=== PATIENT | female | born 1945 | race Caucasian/White ===

== ENCOUNTER 2016-06-01 05:16 | Inpatient (IN) | payer OTHER ==
[2016-06-01] VITALS (8 sets, daily range): BP systolic 101–134; BP diastolic 64–84
[~2016-06-01] VITALS: Ht 160 cm; Wt 83.0 kg
--- NOTE | ~2016-06-01 | O ---
[facility] [place] [address] OPERATIVE REPORT Name: ADA OGDEN Room #: 542-P ADM IN M.R.#: [id number] Admission: 06/01/16 Attend Phys: Mayra Coello MD, Discharge: Date of : 47 Report #: [id number] THIS REPORT FOR: //name// CC: Troy Coello DATE OF SERVICE: 06/01/2016 PREOPERATIVE DIAGNOSES: 1. Incarcerated recurrent incisional ventral hernia. 2. Severe abdominal pain. 3. Suspected intraabdominal adhesions. 4. Intussusception seen on CT scan. POSTOPERATIVE DIAGNOSES: 1. Incarcerated recurrent incisional ventral hernia. 2. Severe abdominal pain. 3. Dense and significant intra-abdominal adhesions. 4. No evidence of intussusception or any other bowel abnormality. 5. Ischemic abdominal wall fascia with indwelling synthetic foreign body material. PROCEDURES PERFORMED: 1. Exploratory laparotomy. 2. Lysis of adhesions. 3. Partial omentectomy. 4. Excisional debridement of ischemic abdominal wall fascia with removal of synthetic foreign body material. 5. Complex abdominal wall reconstruction with open repair of an incarcerated recurrent incisional ventral hernia in the Diamond-Stoppa technique utilizing a BioMesh retrorectus underlay measuring 20 x 10 cm in dimension. 6. Bilateral component separation of the transversus abdominis rectus (TAR) release of the anterior abdominal wall to assist in fascial closure. 7. Adjacent tissue transfer closure of the anterior abdominal wall to achieve complete wound closure with the wound ultimately measuring 33 x 24 cm in dimension (792 square cm). 8. Placement of an external tissue president & ceo device (DermaClose). SURGEON: Mayra Coello M.D. CARTRIDGE MAKER: Javad Rivera M.D. ANESTHESIA: General endotracheal anesthesia. ESTIMATED BLOOD LOSS: 50 mL. [facility] [address] [place] [address] OPERATIVE REPORT Name: ADA OGDEN Room #: 542-P [facility] IN [facility].#: [id number] Admission: 06/01/16 Attend Phys: Mayra Coello MD, Discharge: Date of : 46 Report #: [id number] COMPLICATIONS: None appreciated. SPECIMENS: 1. Excised ischemic abdominal wall with synthetic foreign body material to pathology. 2. Partial omentectomy specimen to pathology. INDICATIONS: The patient is a 71-year-old female who I have seen several times over the past year with complaints of chronic debilitating abdominal pain. Ultimately, we proceeded to the operating room for laparoscopic cholecystectomy with cholangiogram on 05/15/2015. That was performed for right upper quadrant pain, which the patient states has completely dissipated; however, over the past 6 months she has been complaining of significant constipation with lower abdominal cramping and stabbing pain. The patient had been battling severe constipation and was under the care of gastroenterology and underwent a thorough workup including colonoscopy, which was normal, a Sitz marker study, which showed normal motility, repeat CT scan of the abdomen and pelvis in conjunction with CO2 angiography as she is allergic to IV contrast dye, which showed no evidence of mesenteric ischemia. The patient then saw colorectal surgery who performed defecography whereby they recommend pelvic floor rehabilitation for bowel motility issues, but since that time, she has been having normal bowel movements without issue. Unfortunately, her abdominal pain has persistent and she underwent repeat CT imaging, which showed a small short segment intussusception, which was followed by a small bowel series showing no evidence of abnormalities whatsoever. The patient underwent carotid ultrasound as well as an echocardiogram, both of which were within normal limits. As the patient has palpable evidence of an incarcerated recurrent incisional ventral hernia coupled with her chronic debilitating abdominal pain, indication was for exploration today after a very lengthy discussion of the risks, benefits and alternatives to proceeding with operative intervention. DESCRIPTION OF PROCEDURE: After explaining the risks, benefits and alternatives of the procedure with the patient in great detail in the preoperative holding area and obtaining written consent, the patient was brought to the operating room and placed supine on the operating room table. After conducting a thorough timeout procedure verifying correct patient and procedure, she was given general endotracheal anesthesia. Once adequate anesthesia was obtained, her SCDs were hooked up to the pneumatic compression device. She was given a preoperative dose of antibiotics in line with the SCIP protocol. The patient had a Cadena catheter placed and her abdomen was prepped and draped in standard surgical sterile fashion. #10 bladed scalpel was used to create a longitudinal midline wound from the subxiphoid location to the suprapubic location following her prior incision site. Electrocautery was used to carry this down through skin and subcutaneous tissues to ensure hemostasis until I arrived upon the level of fascia. A finger was placed through the obvious incisional ventral hernia that had incarcerated omentum contained [facility] [address] [place] [address] OPERATIVE REPORT Name: ADA OGDEN Room #: 542-P ADM IN M.R.#: [id number] Admission: 06/01/16 Attend Phys: Mayra Coello MD, Discharge: Date of : 47 Report #: [id number] within it and I was able to open the entire fascial incision in a controlled fashion utilizing a finger in the abdomen to prevent injury to the underlying structures. The patient did have numerous loops of small bowel, colon and omentum plastered to the posterior aspect of the anterior abdominal wall and I proceeded to open the longitudinal midline wound with delicate dissection to ensure no damage to the underlying structures. This necessitated a combination of electrocautery and Metzenbaum scissor dissection to prevent injury from thermal spread. Any time, we were near loop of bowel, cold dissection was undertaken with Metzenbaum scissors to prevent injury. Once the entire fascial incision was opened down the midline, we proceeded to evaluate the abdominal wall. The patient ended up having several smaller and recurrent incisional ventral hernias down her longitudinal midline wound all containing omentum. The omentum was plastered low in the pelvis overlying numerous loops of small bowel tethered to the right lower quadrant. Careful dissection was performed to elevate this entire omentum and elevated into the bed of the wound. LigaSure Impact device was used to perform a partial omentectomy of all nonviable omentum and this was passed off the field with complete hemostasis being obtained. The patient did have a large amount of synthetic foreign body material suspected to be suture material from prior repairs down her midline wound, all synthetic material was resected with electrocautery, which included a formal debridement of all ischemic nonviable abdominal wall fascia back to healthy vascularized fascia throughout. All excised tissue was removed and passed off the field to pathology. Yves clamps were now placed along the fascial edges on both sides and attempts at medial mobilization showed that it could be brought together at the midline, but was under significant tension, which is a risk factor for wound dehiscence and recurrence of the hernias. At this juncture, I elected to perform a complex abdominal wall closure with bilateral component separation to hopefully prevent recurrent herniation and as such, I created circumferential skin flaps along the level of the fascia externally during my excisional debridement of the fascia that was carried 4 cm in all directions outside of the fascial edges. This was performed ensuring that we preserved all perforating vessels encountered. Now that I performed debridement of all nonviable fascia and created skin flaps circumferentially, I elected to proceed with a TAR bilateral component separation. I utilized the electrocautery to incise the posterior rectus sheath 0.5 cm medial to the semilunaris to expose the medial edge of the transversus abdominis muscle bilaterally. The muscle was divided allowing entrance into the space then I dissected as far laterally on both sides as possible. The rectus fascia was then advanced medially and this was extended approximately 20 cm in craniocaudal dimension bilaterally and was taken as far laterally as possible. This allowed a significant medial mobilization throughout the entirety of the wound and we were able to bring the fascia together at the midline at this juncture. I now proceeded to repair the recurrent incarcerated incisional ventral hernias in the [place]-Stoppa fashion after performing the bilateral TAR release. I now proceeded to close the posterior rectus fascia using single stranded #1 PDS sutures in standard running fashion from inferior to superior [address] [address] OPERATIVE REPORT Name: ADA OGDEN Room #: 542-P [facility] IN M.R.#: [id number] Admission: 06/01/16 Attend Phys: Mayra Coello MD, Discharge: Date of : 46 Report #: [id number] aspects. This brought the fascial edges together posteriorly quite easily and was tied down in the superior most aspect of the TAR release. I now selected a piece of Miromesh biologic mesh that measured 20 x 10 cm in dimension. This gave us minimum overlap of 5 cm outside of the hernia defects in question laterally and carried the mesh into the dissected plans and the transversus space. The mesh was placed in an immediate retrorectus location in a [place]-Stoppa technique and numerous sutures of #1 PDS were placed through the abdominal wall through the biologic mesh, backup through the abdominal wall where it was then tied. The mesh had been contoured to the defect to remove all rippling of the mesh when the fascial edges were tied down the midline, which was to be done at the completion of the procedure. Each of these transfascial sutures were tied down sequentially, ensuring the biologic mesh was taut throughout. This provided excellent orientation. The midline fascia was now reapproximated with a Yves clamps to ensure no rippling to the biologic mesh and again it was seen to be taut throughout. I now proceeded to place a 19-Khmer round Poli-Becker drain in the space immediately anterior to biologic mesh and posterior to the anterior rectus fascia, which was then brought out through the right lower quadrant abdominal wall, which was then anchored to the skin using 2-0 nylon in standard fashion. I now proceeded to close the anterior rectus fascial defect using a looped #1 PDS suture in standard running fashion from inferior to superior aspects where it was tied down in the subxiphoid location. As I had created skin flaps circumferentially using electrocautery by clearing fascia circumferentially and I carried the dissection superiorly, inferiorly and laterally as much as possible, this left an abdominal wall defect ultimately measuring 33 x 24 cm in dimension. All perforating vessels were preserved throughout the dissection. I now proceeded to close the skin and subcutaneous tissues, which required complex adjacent tissue transfer techniques for complete soft tissue coverage over the abdominal wall. This was performed by making relaxing incisions internally along the flaps and rotating the subcutaneous tissues medially to cover the anterior fascial repair. I then reapproximated the edges of dermis and placed numerous sutures of 3-0 Vicryl in an inverted interrupted fashion to close the superficial tissues over the underlying fascia. Skin was then stapled using the Insorb absorbable subcuticular stapling device. The entire midline wound was under a slight amount of tension after closure and as such I elected to place an external tissue president & ceo device (DermaClose) to help obtain complete wound closure down the midline that was not under any undue tension, which is a significant risk factor for wound dehiscence, especially in this patient with obesity and a BMI of greater than 30. The DermaClose device was placed utilizing its skin anchors to line the wound longitudinally at 3 cm intervals circumferentially around the skin wounds. I ensured that we had at least 4 cm of healthy tissue between the edge of the anchors and the longitudinal wound edge itself. This took 8 anchors on each side and once all anchors were placed they were stapled to the skin using a skin stapler. Telfa gauze was placed overlying the skin wound and I then proceeded to utilize four separate automatic tensioner devices, which were then laced appropriately through the [address] [address] OPERATIVE REPORT Name: OGDEN,ADAKULWANT WATERS Room #: 542-P [facility] IN ..#: [id number] Admission: 06/01/16 Attend Phys: Mayra Coello MD, Discharge: Date of : 47 Report #: [id number] anchors and ratcheted down. Once these were activated they were looked in the place and this applied uniform tension across the entirety of the longitudinal midline wound and kept it closed without undue tension at the level of the subcuticular audelia themselves. This allowed us to offload tension at the audelia and distribute it circumferentially around the wounds 4 cm away on each side. These were then left in place to act as a bolster and DuoDERM was placed on the skin underneath each of the tensioner devices to prevent maceration of the skin. Sterile dressings were applied using ABDs, Medipore tape and an abdominal binder. At the end of the lengthy procedure, all instrument, needle and sponge counts were correct. The patient tolerated the procedure without incident. She was awakened in the operating room and transitioned to the recovery room in stable condition with no apparent complications. She made excellent urine throughout the case and had no appreciable increase peak airway pressures throughout. <ELECTRONICALLY SIGNED> By: Mayra Coello MD, FACS 06/02/16 0741 181 37 Mayra Coello MD, FACS /nt
--- NOTE | ~2016-06-01 | EKG ---
[address] [address] ELECTROCARDIOGRAM REPORT Name: ADA OGDEN EVELIN Room #: 405-P ADM IN M.R.#: [id number] Admission: 06/01/16 Attend Phys: Mayra Coello MD, Discharge: Date of : 47 Report #: [id number] THIS REPORT FOR: //name// [facility] Test Date: 2016-06-10 Test Time: 18:13:33 Pat Name: ADA OGDEN Department: Room: 405 P Gender: F Plastic Welder: Debi GOETZ : 1945 Requested By: Elaine Baez Order Number: [id number] MD: Christiano Andrade Measurements Intervals [place] Rate: 93 P: 5 WV: 134 QRS: 4 QRSD: 89 T: 13 QT: 344 QTc: 428 Interpretive Statements Sinus rhythm Probable left atrial enlargement Baseline wander in lead(s) V1 No previous ECG available for comparison Electronically Signed On 06-11-2016 8:26:45 CDT by Christiano Andrade [email or web address] <ELECTRONICALLY SIGNED> By: Christiano Andrade MD, [facility] 06/11/16 0826 12 12 Christiano Andrade MD, [facility] /EPI
--- NOTE | ~2016-06-01 | S ---
[facility] [place] [place] [address] SURGICAL PATH RPT PROCEDURE Name: JENAE OGDEN Room #: 542-P ADM IN M.R.#: [id number] Admission: 06/01/16 Date of : 47 Discharge: Report #: [id number] Path Case #: [id number] PATHOLOGY REPORT COLLECTION DATE: 06/01/2016 RECEIVED DATE: 06/01/2016 SUBMITTING PHYS: Dr. Mayra Coello OTHER PHYS: Dr. Troy Rust SPECIMEN(S) RECEIVED: A.Omentum with foreign body * * * * * * * * * * * * FINAL DIAGNOSIS: Omentum with foreign body, removal: - Mature fibroadipose tissue associated with extensive congestion and reactive changes. - Synthetic suture and synthetic material measuring an aggregate of 4.1 cm. (Gross Exam Only). (IUV:csd; d/t: 06/02/2016) PATHOLOGIST: Suzanne Banda M.D. REPORT ELECTRONICALLY SIGNED BY: Suzanne Banda M.D. DATE/TIME: 06/02/2016 16:15 * * * * * * * * * * * * GROSS PATHOLOGY: The specimen is received in formalin labeled "Jenae Ogden, omentum with foreign body". Received is a segment of yellow-henderson omentum measuring 15.8 x 10.9 x 3.2 cm in greatest dimensions. Sectioning reveals yellow-henderson, lobulated cut surface with no grossly distinct nodules or lesions. Also received within the specimen container are multiple blue sutures attached to a foreign synthetic material measuring 4.1 x 3.2 x 1.2 cm in aggregate dimensions. Cryolite Recovery Operator sections of the omentum are submitted in cassette A1. A gross photograph is taken of the sutures. (CAA; 06/01/2016) CLINICAL HISTORY: Incisional hernia with obstruction INITIAL CPT CODE(S): A; 21685, 17423 Professional services performed by [facility] at [address] [address] SURGICAL PATH RPT PROCEDURE Name: OGDENEDUARDOJENAEKULWANT WATERS Room #: 542-P ADM IN M.R.#: [id number] Admission: 06/01/16 Date of : 47 Discharge: Report #: [id number] Path Case #: [id number] [address] [facility] , [place] [address] Technical [facility] by [facility] at [address] [place] [address], [facility] [address] [place] [address]. [facility] [address] [place] [address] PHONE: [phone] DIRECTOR: Cali Nguyễn M.D. * * * END OF REPORT * * *
--- NOTE | ~2016-06-01 | 2DMMODE ---
[facility] [address] [place] [address] 2 D/M-MODE ECHOCARDIOGRAM Name: ADA OGDEN Room #: 405-P ADM IN M.R.#: [id number] Admission: 06/01/16 Attend Phys: Mayra Coello, Discharge: Date of : 47 Date of Service: 06/11/16 1703 Report #: [id number] THIS REPORT FOR: //name// APPROVED REPORT EXAM: Comprehensive 2D, Doppler, and color-flow Echocardiogram Patient Location: Bedside/ROOM 405 Blood Pressure: 160/106 mmHg HR: 82 bpm Other Information Study Quality: Fair Technically limited study due to body habitus, surgical bandages. Only one available window.. Indications Limited echo: Rule out pulmonary embolism. dyspnea. (Had complete echo 04/2016) Tricuspid Valve TR Peak Bg.: 2.96 m/s TR Peak Gr.: 35.13 mmHg Left Ventricle The left ventricle is normal size. Regional wall motion is not well visualized but grossly normal. There is normal left ventricular wall thickness. The left ventricular systolic function is normal. LVEF is 50-55%. Right Ventricle The right ventricle is normal size and appears mildly hypokinetic Atria Left atrium appears dilated. The right atrium size is normal. Aortic Valve The aortic valve is normal in structure. No aortic regurgitation is present. Mitral Valve The mitral valve is normal in structure. Mild mitral annular [facility] [address] [place] [address] 2 D/M-MODE ECHOCARDIOGRAM Name: ADA OGDEN Room #: 405-P ADM IN M.R.#: [id number] Admission: 06/01/16 Attend Phys: Mayra Coello, Discharge: Date of : 47 Date of Service: 06/11/161702 Report #: [id number] calcification. There is no mitral valve regurgitation noted. Tricuspid Valve The tricuspid valve is normal in structure. There is mild tricuspid regurgitation. The right atrial pressure is unable to be estimated. There is at least mild pulmonary hypertension with an estimated PAP of 35 plus the right atrial pressure. Great Vessels The inferior vena cava is not well visualized. Pericardium There is no pericardial effusion. <Conclusion> The left ventricular systolic function is normal. Regional wall motion is not well visualized but grossly normal. LVEF is 50-55%. Left atrium appears dilated. The aortic valve is normal in structure without stenosis or insufficiency. Mild mitral annular calcification. No mitral stenosis or insufficiency There is mild tricuspid regurgitation. The right atrial pressure is unable to be estimated. There is at least mild pulmonary hypertension with an estimated PAP of 35 plus the right atrial pressure. There is no pericardial effusion. <ELECTRONICALLY SIGNED> By: Christiano Andrade MD, [facility] 06/11/161702 02 02 Christiano Andrade MD, FACC /INF
--- NOTE | ~2016-06-01 | O ---
[facility] [place] [address] OPERATIVE REPORT Name: ADA OGDEN Room #: 542-P ADM IN M.R.#: [id number] Admission: 06/01/16 Attend Phys: Mayra Coello MD, Discharge: Date of : 47 Report #: [id number] THIS REPORT FOR: //name// CC: Troy Coello DATE OF SERVICE: 06/08/2016 PREOPERATIVE DIAGNOSES: Indwelling external tissue expanders, status post complex abdominal wall reconstruction with bilateral component separation, adjacent tissue transfer and utilization of biomesh repair of an incarcerated recurrent incisional ventral hernia. POSTOPERATIVE DIAGNOSES: Indwelling external tissue expanders, status post complex abdominal wall reconstruction with bilateral component separation, adjacent tissue transfer and utilization of biomesh repair of an incarcerated recurrent incisional ventral hernia. PROCEDURE: Removal of external tissue correctional food service supervisor. SURGEON: Mayra Coello MD MANAGER MARKET DEVELOPMENT: Brittni Stacy MS3. ANESTHESIA: None. COMPLICATIONS: None. SPECIMENS: All removed external tissue expanders. INDICATIONS: The patient is a 71-year-old female who is postoperative day #7 after undergoing complex abdominal wall reconstruction procedure for multiple incarcerated recurrent incisional ventral hernias and marked intra-abdominal adhesions. The patient has done well overall with pain control being the only real postoperative issue and as it has been 7 days now, indication was for removal today to evaluate the wound postoperatively. DESCRIPTION OF PROCEDURE: After explaining the risks, benefits and alternatives of the procedure and obtaining consent, the patient remained in her hospital room, supine on her hospital bed. After conducting a thorough timeout procedure, verifying correct patient, and procedure, the patient's abdomen was prepped and draped in standard surgical sterile fashion. Sterile suture scissors were used to cut the sutures of the automatic tensioner devices that were laced through the anchors that lined to the wound longitudinally. This allowed each of the tensioner devices to be unwoven from the anchors and then they were passed off the field. Thee sterile staple removers were then used to [address] [address] OPERATIVE REPORT Name: ALINADA EVELIN Room #: 542-P ADM IN M.R.#: [id number] Admission: 06/01/16 Attend Phys: Mayra Coello MD, Discharge: Date of : 47 Report #: [id number] remove all of the audelia that affixed the anchors to the abdominal wall and then the anchors themselves were gently lifted out of the abdominal wall in standard fashion. This left a longitudinal midline wound that was healthy without erythema, induration, necrosis or drainage. The wound was then dressed with sterile Telfa, Medipore tape and her abdominal binder was replaced. At the end of the procedure, all instrument, needle, and sponge counts were correct. The patient tolerated the procedure without incident where she remained in her hospital bed in stable condition with no apparent complications. <ELECTRONICALLY SIGNED> By: Mayra Coello MD, FACS 06/08/16 1504 0905 1034 Mayra Coello MD, FACS /nt
--- NOTE | ~2016-06-01 | HC ---
[facility] [place] [address] CONSULTATION Name: ADA OGDEN Room #: 405-P ADM IN M.R.#: [id number] Admission: 06/01/16 Attend Phys: Mayra Coello MD, Discharge: Date of : 47 Report #: [id number] THIS REPORT FOR: //name// CC: Troy Rust DO Mayra Coello MD DATE OF SERVICE: 06/05/2016 REFERRING PROVIDER: Mayra Coello MD REASON FOR CONSULTATION: Cough, hypoxemia, abnormal chest x-ray. HISTORY OF PRESENT ILLNESS: Our group was asked to evaluate the patient in consultation while hospitalized at [facility], a pleasant 71-year-old woman with a past pulmonary history significant only for intermittent lower respiratory infections associated with bronchospasm, has a nebulizer, which she uses about once a year during these episodes of lower respiratory infection, was admitted for elective surgery for an incarcerated incisional ventral hernia and an adhesiolysis, underwent a surgical exploration with extensive lysis of adhesions, partial omentectomy and debridement of ischemic abdominal wall fascia, removal of synthetic foreign body material and then complex abdominal wall reconstruction and repair of recurrent incisional ventral hernias. Postoperatively, he had been having some difficulties due to ongoing ileus, had been having some cough with no sputum production, no fevers, chills or sweats. Because of increasing confusion, although improved this afternoon and the patient's lack of steady progress and ongoing cough, additional workup was undertaken. Chest radiograph today revealed an small opacity in the retrocardiac area. We were asked to further evaluate. The patient notes some difficulty performing well on incentive spirometry, her incentive spirometry was brought to her today to use every hour, has been pulling less than 1000 mL on the incentive spirometer and as mentioned has cough that is nonproductive. No shortness of breath, had some difficulty taking a good deep breath due to discomfort in the epigastric area with deep inspiration. A chest radiograph today revealed markedly poor inspiratory effort, particularly of the right lung with a small area of opacity suggestive of infiltrate, atelectasis or small pleural effusion. Currently, she is resting comfortably in bed, does not appear in any distress. ALLERGIES: Include FIBERGLASS CASTING and CONTRAST DYE, SHELLFISH, STADOL, MORPHINE, CODEINE, DARVON, NABUMETONE, REGLAN, NALFON, LEVAQUIN and RIVAROXABAN. PAST MEDICAL HISTORY: Includes: 1. Recurrent lower respiratory infection and bronchitis about once annually [address] [address] CONSULTATION Name: ADA OGDEN Room #: 405-P [facility] IN M.R.#: [id number] Admission: 06/01/16 Attend Phys: Mayra Coello MD, Discharge: Date of : 47 Report #: [id number] requiring bronchodilators and antibiotic therapy. 2. History of severe esophageal reflux, status post Luis Alberto fundoplication. 3. History of left total knee arthroplasty. 4. Hysterectomy. 5. Bilateral salpingectomy and oophorectomy. SOCIAL HISTORY: The patient is a nonsmoker, never smoker. No significant alcohol consumption. Lives with significant other who she has known for about the last year and a half. FAMILY HISTORY: Significant for mother with Alzheimer dementia and cerebrovascular disease. REVIEW OF SYSTEMS: CONSTITUTIONAL: No fevers, chills or sweats. ENT: No upper respiratory congestion. She has some throat pain at present postoperatively. CARDIOVASCULAR: No cardiac disease, chest pain or palpitations. GASTROINTESTINAL: As described in HPI. GENITOURINARY: No dysuria or any frequency or hematuria. INTEGUMENT: Denies any new rash. MUSCULOSKELETAL: History of osteoarthritis of bilateral total knee. arthroplasties. No other significant complaints at this time. PHYSICAL EXAMINATION: VITAL SIGNS: Afebrile, pulse 80s, respiratory rate 18, blood pressure 156/95, oxygen saturation 96% on 2 liters. GENERAL: This is an obese, elderly woman, does not appear in any distress. HEENT: Mallampati 3 airway, no thrush. No erythema. NECK: Supple, no lymphadenopathy. LUNGS: Diminished in the left base, no significant wheezes or crackles. CARDIOVASCULAR: Heart regular. No murmurs or gallops. ABDOMEN: abdominal binder in place. PAZ tube is noted with minimal serosanguineous drainage in the bulb, markedly diminished bowel sounds. EXTREMITIES: Warm, 2+ pulses. No significant edema. Right upper extremity peripheral IV noted. LABORATORY DATA: White blood cell count 10,000, hemoglobin 12, hematocrit 34, and platelet count 173. Sodium 140, potassium 3.3, chloride 104, bicarbonate 27, BUN 6, creatinine 0.5 and glucose 126. Chest x-ray as described. radiographs to review. IMPRESSION: 1. Acute hypoxemic respiratory failure, likely multifactorial to include atelectasis, diminished vital capacity due to recent abdominal surgery. 2. Left retrocardiac infiltrate and/or atelectasis, likely represents a [facility] [address] [place] [address] CONSULTATION Name: ADA OGDEN Room #: 405-P ADM IN M.R.#: [id number] Admission: 06/01/16 Attend Phys: Mayra Coello MD, Discharge: Date of : 47 Report #: [id number] component of atelectasis over effusion and her pneumonia with no fever or leukocytosis, would favor treating her atelectasis for now. Consider further evaluation for possible pleural effusion with decubitus x-ray if the patient can tolerate. 3. Recent significant abdominal repair of hernias as described above. SUGGESTIONS: 1. Incentive spirometry q. 1 hour. 2. We will add albuterol aerosol treatments with EzPAP. 3. Follow up radiograph in a.m. 4. Afebrile or leukocytosis or purulent cough. Would add antimicrobial therapy to cover for healthcare-associated organisms. 5. Mobilize as able. 6. Additional recommendations to follow. Thank you for requesting our suggestions. <ELECTRONICALLY SIGNED> By: Hawk Teran MD 06/09/16 [id number] Hawk Teran MD /nt
[~2016-06-01 05:16] MED LIST: ALLERGY 4-HOUR4 MG PO; ALPRAZOLAM 0.50.5 M1 PO; AMITIZA 24 MCG24 MC1 PO; AMITRIPTYLINE H10 M3 PO; APAP500 PO; ASPIR 8181 MG PO; BUSPIRONE HCL5 MG PO; CLARITIN10 MG PO; COLACE100 MG PO; FISH OIL 1,001000 M2 PO; IBUPROFEN 800800 M1 PO; KLOR-CON 10 ER10 MEQ; LINZESS290 MCG PO; MAGNESIUM GLUC500 M1 PO; MIRALAX17 GM PO; MULTIVITAMINS1 EAC7 PO; NORCO 5-325 TA1 EACH PO; PROTONIX40 M1 PO; RANITIDINE 150150 M1 PO; RESTASIS1 EACH OPHTHALMIC; TRAZODONE 150150 M1 PO; TRAZODONE HCL100 MG PO; VITAMIN B COMP1 EACH PO; VITAMIN B-12500 MCG PO; VITAMIN D2000 UNIT PO; VITAMINC500 PO; XALATAN2.5 ML OPHTHALMIC
[2016-06-02 03:09] VITALS: BP 128/80
[2016-06-02 05:05] LABS: HEMATOCRIT 37.3 % (37.0-47.0); HEMOGLOBIN 12.3 gm/dL (12.0-15.0); MCH 29.6 pg (26.0-34.0); MCV 89.5 fL (80.0-100.0); RBC 4.17 mil/uL (4.20-5.00); RDW 14.1 % (10.5-14.5); WBC 14.3 thou/uL (4.0-11.0)
[2016-06-02 05:14] LABS: CALCIUM 7.7 mg/dL (8.5-10.1); CREATININE 0.7 mg/dL (0.6-1.3); MAGNESIUM 2.2 mg/dL (1.8-2.4); POTASSIUM 4.1 mmol/L (3.5-5.1)
[2016-06-02 08:23] VITALS: BP 112/62
[2016-06-02 15:30] VITALS: BP 134/71
[2016-06-02 15:51] VITALS: BP 134/71
[2016-06-02 20:00] VITALS: BP 121/67
[2016-06-03 03:38] LABS: HEMATOCRIT 33.4 % (37.0-47.0); HEMOGLOBIN 11.3 gm/dL (12.0-15.0); MCH 30.1 pg (26.0-34.0); MCHC 33.7 g/dL (28.0-37.0); MCV 89.2 fL (80.0-100.0); PLATELET COUNT 134 thou/uL (150-400); RBC 3.74 mil/uL (4.20-5.00); RDW 14.4 % (10.5-14.5); WBC 14.5 thou/uL (4.0-11.0)
[2016-06-03 03:43] LABS: MANUAL DIFF YES
[2016-06-03 03:45] LABS: CALCIUM 7.5 mg/dL (8.5-10.1); CREATININE 0.6 mg/dL (0.6-1.3); MAGNESIUM 2.2 mg/dL (1.8-2.4); POTASSIUM 3.8 mmol/L (3.5-5.1)
[2016-06-03 04:00] VITALS: BP 116/61
[2016-06-03 06:21] LABS: ABSOLUTE NEUTROPHILS 12.3 thou/uL (1.4-8.2); MYELOCYTES 1 %; TOTAL CELL COUNT 100
[2016-06-03 09:49] VITALS: BP 141/80
[2016-06-03 17:47] VITALS: BP 141/91
[2016-06-03 20:00] VITALS: BP 138/74
[2016-06-04] VITALS: BP 150/90
[2016-06-04 02:00] VITALS: BP 144/82
[2016-06-04 05:25] LABS: HEMATOCRIT 34.1 % (37.0-47.0); HEMOGLOBIN 11.5 gm/dL (12.0-15.0); MCHC 33.6 g/dL (28.0-37.0); PLATELET COUNT 151 thou/uL (150-400); RBC 3.83 mil/uL (4.20-5.00); RDW 13.9 % (10.5-14.5); WBC 13.7 thou/uL (4.0-11.0)
[2016-06-04 05:40] LABS: MANUAL DIFF YES
[2016-06-04 05:41] LABS: CALCIUM 8.1 mg/dL (8.5-10.1); CREATININE 0.5 mg/dL (0.6-1.3); MAGNESIUM 2.1 mg/dL (1.8-2.4); POTASSIUM 3.3 mmol/L (3.5-5.1)
[2016-06-04 08:00] VITALS: BP 149/89
[2016-06-04 08:07] LABS: ABSOLUTE NEUTROPHILS 11.4 thou/uL (1.4-8.2); ANISOCYTOSIS 1+; TOTAL CELL COUNT 100
[2016-06-04 15:40] VITALS: BP 174/92
[2016-06-04 20:15] VITALS: BP 171/95
[2016-06-05 03:15] VITALS: BP 142/97
[2016-06-05 04:22] LABS: HEMATOCRIT 33.7 % (37.0-47.0); HEMOGLOBIN 11.5 gm/dL (12.0-15.0); MCH 30.4 pg (26.0-34.0); MCHC 34.2 g/dL (28.0-37.0); MCV 88.8 fL (80.0-100.0); RBC 3.79 mil/uL (4.20-5.00); RDW 13.7 % (10.5-14.5); WBC 10.1 thou/uL (4.0-11.0)
[2016-06-05 04:32] LABS: CALCIUM 8.3 mg/dL (8.5-10.1); CREATININE 0.5 mg/dL (0.6-1.3); POTASSIUM 3.3 mmol/L (3.5-5.1)
[2016-06-05 08:41] VITALS: BP 163/89
[2016-06-05 16:48] VITALS: BP 156/95
[2016-06-05 22:00] VITALS: BP 150/84
[2016-06-06 05:51] VITALS: BP 126/70
[2016-06-06 07:17] VITALS: BP 159/92
[2016-06-06 16:00] VITALS: BP 147/82
[2016-06-06 20:30] VITALS: BP 155/94
[2016-06-07 03:53] LABS: HEMATOCRIT 34.9 % (37.0-47.0); HEMOGLOBIN 11.8 gm/dL (12.0-15.0); MCH 29.9 pg (26.0-34.0); MCHC 33.7 g/dL (28.0-37.0); MCV 88.7 fL (80.0-100.0); RBC 3.94 mil/uL (4.20-5.00); RDW 13.7 % (10.5-14.5); WBC 8.9 thou/uL (4.0-11.0)
[2016-06-07 04:07] LABS: CALCIUM 8.3 mg/dL (8.5-10.1); CREATININE 0.6 mg/dL (0.6-1.3); POTASSIUM 3.2 mmol/L (3.5-5.1)
[2016-06-07 05:15] VITALS: BP 160/88
[2016-06-07 07:45] VITALS: BP 134/82
[2016-06-07 16:12] VITALS: BP 138/88
[2016-06-07 19:58] VITALS: BP 135/79
[2016-06-07 20:10] VITALS: BP 135/79
[2016-06-08 03:10] VITALS: BP 153/89
[2016-06-08 16:25] VITALS: BP 171/96
[2016-06-08 19:07] VITALS: BP 165/93
[2016-06-09 05:59] LABS: HEMATOCRIT 35.6 % (37.0-47.0); HEMOGLOBIN 12.1 gm/dL (12.0-15.0); MCH 29.9 pg (26.0-34.0); RBC 4.05 mil/uL (4.20-5.00); RDW 13.9 % (10.5-14.5); WBC 11.8 thou/uL (4.0-11.0)
[2016-06-09 06:21] LABS: CALCIUM 8.6 mg/dL (8.5-10.1); CREATININE 0.6 mg/dL (0.6-1.3)
[2016-06-09 10:23] VITALS: BP 168/109
[2016-06-09 16:53] VITALS: BP 183/105
[2016-06-09 19:40] VITALS: BP 166/116
[2016-06-10 00:35] VITALS: BP 168/111
[2016-06-10 04:00] VITALS: BP 185/125
[2016-06-10 08:00] VITALS: BP 169/110
[2016-06-10 15:21] VITALS: BP 117/117
[2016-06-10 19:40] VITALS: BP 169/113
[2016-06-11 00:38] VITALS: BP 178/118
[2016-06-11 01:06] LABS: HEMATOCRIT 37.4 % (37.0-47.0); HEMOGLOBIN 12.6 gm/dL (12.0-15.0); MCH 29.6 pg (26.0-34.0); MCHC 33.7 g/dL (28.0-37.0); RBC 4.25 mil/uL (4.20-5.00); RDW 13.9 % (10.5-14.5); WBC 13.9 thou/uL (4.0-11.0)
[2016-06-11 01:17] LABS: CALCIUM 8.9 mg/dL (8.5-10.1); CREATININE 0.9 mg/dL (0.6-1.3)
[2016-06-11 04:54] VITALS: BP 149/97
[2016-06-11 06:42] LABS: ABG SAMPLE TYPE ARTERIAL; BE(vivo) 1.1 mmol/L (-2 to +3); HCO3 24.1 mmol/L (22.0-26.0); LACTATE 0.98 mmol/L (0.5-2.0); O2(CT) 16.1 mL/dL (15.0-23.0); O2Hb 87.6 % (92.0-98.0); PCO2 33.3 mmHg (35.0-45.0); PO2 54.4 mmHg (80.0-100.0); STICK SITE R.RADIAL; pH 7.478 (7.360-7.450); sO2 90.7 % (92.0-98.0); tCO2 25.2 mmol/L (24.0-30.0)
[2016-06-11 07:35] VITALS: BP 167/101
[2016-06-11 09:13] LABS: CHOLESTEROL 148 mg/dL (<200); HDL CHOLESTEROL 54 mg/dL (>40); LDL CHOLESTEROL 74 mg/dL (<100); TC:HDL 2.7 Ratio (Not establshd); TRIGLYCERIDE 104 mg/dL (<150); VLDL 21 mg/dL (<40)
[2016-06-11 12:06] VITALS: BP 160/106
[2016-06-11 16:17] VITALS: BP 156/96
[2016-06-11 20:00] VITALS: BP 136/98
[2016-06-12 04:00] VITALS: BP 149/104
[2016-06-12 04:08] LABS: HEMATOCRIT 35.2 % (37.0-47.0); HEMOGLOBIN 12.1 gm/dL (12.0-15.0); MCH 29.9 pg (26.0-34.0); MCHC 34.5 g/dL (28.0-37.0); MCV 86.5 fL (80.0-100.0); RBC 4.07 mil/uL (4.20-5.00); RDW 13.8 % (10.5-14.5); WBC 15.8 thou/uL (4.0-11.0)
[2016-06-12 04:19] LABS: CALCIUM 8.3 mg/dL (8.5-10.1); CREATININE 0.7 mg/dL (0.6-1.3); POTASSIUM 4.1 mmol/L (3.5-5.1)
[2016-06-12 08:26] VITALS: BP 166/104
[2016-06-12 12:00] VITALS: BP 134/84
[2016-06-12 17:07] VITALS: BP 127/75
[2016-06-12 19:51] VITALS: BP 140/84
[2016-06-13 01:14] VITALS: BP 133/81
[2016-06-13 05:40] LABS: ABSOLUTE NEUTROPHILS 10.1 thou/uL (1.4-8.2); BASOPHILS 0.1 % (0.0-2.0); HEMATOCRIT 31.6 % (37.0-47.0); LYMPHOCYTES 11.7 % (24.0-44.0); MCH 30.2 pg (26.0-34.0); MCHC 34.8 g/dL (28.0-37.0); MCV 86.8 fL (80.0-100.0); MONOCYTES 8.9 % (1.0-8.0); PLATELET COUNT 258 thou/uL (150-400); POLYS 78.3 % (36.0-66.0); RBC 3.64 mil/uL (4.20-5.00); WBC 12.9 thou/uL (4.0-11.0)
[2016-06-13 05:44] LABS: MANUAL DIFF NO
[2016-06-13 05:58] LABS: CALCIUM 8.3 mg/dL (8.5-10.1); CREATININE 0.7 mg/dL (0.6-1.3); POTASSIUM 3.4 mmol/L (3.5-5.1)
[2016-06-13 08:00] VITALS: BP 142/91
[2016-06-13 13:00] VITALS: BP 146/88
[2016-06-13 16:00] VITALS: BP 136/81
[2016-06-13 20:05] VITALS: BP 143/72
[2016-06-14] VITALS: BP 143/74
[2016-06-14 04:37] VITALS: BP 137/73
[2016-06-14 04:49] LABS: ABSOLUTE NEUTROPHILS 7.9 thou/uL (1.4-8.2); BASOPHILS 0.2 % (0.0-2.0); EOSINOPHILS 1.3 % (0.0-3.0); HEMATOCRIT 31.2 % (37.0-47.0); HEMOGLOBIN 10.7 gm/dL (12.0-15.0); LYMPHOCYTES 10.5 % (24.0-44.0); MCH 29.8 pg (26.0-34.0); MCHC 34.3 g/dL (28.0-37.0); MCV 86.9 fL (80.0-100.0); MONOCYTES 9.4 % (1.0-8.0); PLATELET COUNT 255 thou/uL (150-400); POLYS 78.6 % (36.0-66.0); RBC 3.59 mil/uL (4.20-5.00); RDW 13.6 % (10.5-14.5); WBC 10.1 thou/uL (4.0-11.0)
[2016-06-14 04:53] LABS: MANUAL DIFF NO
[2016-06-14 05:05] LABS: ALBUMIN 2.3 g/dL (3.4-5.0); CALCIUM 7.7 mg/dL (8.5-10.1); CREATININE 0.6 mg/dL (0.6-1.3); TOTAL BILIRUBIN 0.4 mg/dL (<0.1-1.0); TOTAL PROTEIN 5.2 g/dL (6.4-8.2)
[2016-06-14 05:10] LABS: MAGNESIUM 2.2 mg/dL (1.8-2.4); PHOSPHORUS 3.1 mg/dL (2.5-4.9); POTASSIUM 2.9 mmol/L (3.5-5.1)
[2016-06-14 08:00] VITALS: BP 139/85
[2016-06-14 16:00] VITALS: BP 152/81
[2016-06-14 20:20] VITALS: BP 151/80
[2016-06-15 04:19] VITALS: BP 141/84
[2016-06-15 06:29] LABS: HEMATOCRIT 31.7 % (37.0-47.0); HEMOGLOBIN 10.9 gm/dL (12.0-15.0); MCH 29.9 pg (26.0-34.0); MCHC 34.5 g/dL (28.0-37.0); MCV 86.6 fL (80.0-100.0); RBC 3.66 mil/uL (4.20-5.00); RDW 13.6 % (10.5-14.5); WBC 9.9 thou/uL (4.0-11.0)
[2016-06-15 06:51] LABS: ALBUMIN 2.4 g/dL (3.4-5.0); CALCIUM 7.9 mg/dL (8.5-10.1); CREATININE 0.6 mg/dL (0.6-1.3); POTASSIUM 3.4 mmol/L (3.5-5.1); TOTAL BILIRUBIN 0.6 mg/dL (<0.1-1.0); TOTAL PROTEIN 5.4 g/dL (6.4-8.2)
[2016-06-15 08:00] VITALS: BP 142/76
[2016-06-15 16:00] VITALS: BP 139/90
[2016-06-15 20:00] VITALS: BP 130/84
[2016-06-16 03:55] VITALS: BP 124/73
[2016-06-16 04:56] LABS: HEMATOCRIT 32.6 % (37.0-47.0); HEMOGLOBIN 11.1 gm/dL (12.0-15.0); MCH 29.7 pg (26.0-34.0); MCV 87.3 fL (80.0-100.0); PLATELET COUNT 243 thou/uL (150-400); RBC 3.74 mil/uL (4.20-5.00); RDW 13.8 % (10.5-14.5)
[2016-06-16 04:58] LABS: MANUAL DIFF YES
[2016-06-16 05:09] LABS: ALBUMIN 2.5 g/dL (3.4-5.0); CALCIUM 8.2 mg/dL (8.5-10.1); CREATININE 0.6 mg/dL (0.6-1.3); POTASSIUM 3.3 mmol/L (3.5-5.1); TOTAL BILIRUBIN 0.4 mg/dL (<0.1-1.0); TOTAL PROTEIN 5.7 g/dL (6.4-8.2)
[2016-06-16 05:17] LABS: ABSOLUTE NEUTROPHILS 5.8 thou/uL (1.4-8.2); ATYPICAL LYMPHS 3 %; TOTAL CELL COUNT 100
[2016-06-16 08:17] VITALS: BP 133/78
[2016-06-16 09:12] LABS: MAGNESIUM 2.2 mg/dL (1.8-2.4); PHOSPHORUS 3.3 mg/dL (2.5-4.9)
[2016-06-16 16:00] VITALS: BP 133/73
[2016-06-16 19:20] VITALS: BP 136/77
[2016-06-17 04:15] VITALS: BP 127/81
[2016-06-17 05:18] LABS: HEMATOCRIT 31.8 % (37.0-47.0); HEMOGLOBIN 10.9 gm/dL (12.0-15.0); MCH 29.9 pg (26.0-34.0); MCHC 34.2 g/dL (28.0-37.0); MCV 87.3 fL (80.0-100.0); PLATELET COUNT 237 thou/uL (150-400); RBC 3.64 mil/uL (4.20-5.00); RDW 13.6 % (10.5-14.5); WBC 5.2 thou/uL (4.0-11.0)
[2016-06-17 05:22] LABS: MANUAL DIFF YES
[2016-06-17 05:40] LABS: ALBUMIN 2.3 g/dL (3.4-5.0); CALCIUM 8.2 mg/dL (8.5-10.1); CREATININE 0.5 mg/dL (0.6-1.3); MAGNESIUM 2.3 mg/dL (1.8-2.4); PHOSPHORUS 2.7 mg/dL (2.5-4.9); POTASSIUM 3.5 mmol/L (3.5-5.1); TOTAL BILIRUBIN 0.3 mg/dL (<0.1-1.0); TOTAL PROTEIN 5.7 g/dL (6.4-8.2)
[2016-06-17 08:00] VITALS: BP 121/76
[2016-06-17 08:04] LABS: ABSOLUTE NEUTROPHILS 3.3 thou/uL (1.4-8.2); ANISOCYTOSIS SLIGHT; ATYPICAL LYMPHS 2 %; POIKILOCYTOSIS SLIGHT; TOTAL CELL COUNT 100
[2016-06-17 16:01] VITALS: BP 132/88
[2016-06-17 21:40] VITALS: BP 141/90
[2016-06-18 04:01] VITALS: BP 122/81
[2016-06-18 05:46] LABS: HEMATOCRIT 33.4 % (37.0-47.0); HEMOGLOBIN 11.3 gm/dL (12.0-15.0); MCH 29.4 pg (26.0-34.0); MCHC 33.8 g/dL (28.0-37.0); MCV 86.9 fL (80.0-100.0); RBC 3.84 mil/uL (4.20-5.00); RDW 13.4 % (10.5-14.5); WBC 6.7 thou/uL (4.0-11.0)
[2016-06-18 06:01] LABS: ALBUMIN 2.5 g/dL (3.4-5.0); CREATININE 0.5 mg/dL (0.6-1.3); MAGNESIUM 2.2 mg/dL (1.8-2.4); PHOSPHORUS 2.7 mg/dL (2.5-4.9); POTASSIUM 3.6 mmol/L (3.5-5.1); TOTAL BILIRUBIN 0.3 mg/dL (<0.1-1.0); TOTAL PROTEIN 5.8 g/dL (6.4-8.2)
[2016-06-18 08:27] VITALS: BP 107/71
[2016-06-18 18:25] VITALS: BP 135/93
[2016-06-18 19:30] VITALS: BP 150/91
[2016-06-19 06:24] VITALS: BP 160/94
[2016-06-19 06:26] LABS: HEMATOCRIT 35.1 % (37.0-47.0); MCH 29.2 pg (26.0-34.0); MCHC 34.3 g/dL (28.0-37.0); MCV 85.2 fL (80.0-100.0); PLATELET COUNT 232 thou/uL (150-400); RBC 4.12 mil/uL (4.20-5.00); RDW 13.4 % (10.5-14.5); WBC 5.8 thou/uL (4.0-11.0)
[2016-06-19 06:35] LABS: MANUAL DIFF YES
[2016-06-19 08:00] VITALS: BP 126/83
[2016-06-19 08:37] LABS: ABSOLUTE NEUTROPHILS 2.7 thou/uL (1.4-8.2); TOTAL CELL COUNT 100
[2016-06-19 08:38] LABS: PLATELET ESTIMATE NORMAL
[2016-06-19 08:55] LABS: CALCIUM 8.4 mg/dL (8.5-10.1); CREATININE 0.4 mg/dL (0.6-1.3); MAGNESIUM 2.4 mg/dL (1.8-2.4); PHOSPHORUS 3.1 mg/dL (2.5-4.9); POTASSIUM 3.9 mmol/L (3.5-5.1)
[2016-06-19 13:36] VITALS: BP 126/83
[2016-06-19 16:00] VITALS: BP 137/77
[2016-06-19 19:30] VITALS: BP 125/71
[2016-06-20 05:29] LABS: HEMATOCRIT 33.9 % (37.0-47.0); HEMOGLOBIN 11.3 gm/dL (12.0-15.0); MCHC 33.4 g/dL (28.0-37.0); MCV 86.7 fL (80.0-100.0); RBC 3.91 mil/uL (4.20-5.00); RDW 13.2 % (10.5-14.5); WBC 6.3 thou/uL (4.0-11.0)
[2016-06-20 05:35] VITALS: BP 123/72
[2016-06-20 05:46] LABS: CALCIUM 8.4 mg/dL (8.5-10.1); CREATININE 0.7 mg/dL (0.6-1.3); MAGNESIUM 2.1 mg/dL (1.8-2.4); PHOSPHORUS 3.4 mg/dL (2.5-4.9); POTASSIUM 3.2 mmol/L (3.5-5.1)
[2016-06-20 07:29] VITALS: BP 133/82
[2016-06-20 16:25] VITALS: BP 135/88
[2016-06-20 19:15] VITALS: BP 125/84
[2016-06-21 03:22] VITALS: BP 113/73
[2016-06-21 07:12] LABS: CALCIUM 8.4 mg/dL (8.5-10.1); CREATININE 0.6 mg/dL (0.6-1.3); MAGNESIUM 2.2 mg/dL (1.8-2.4); PHOSPHORUS 3.7 mg/dL (2.5-4.9); POTASSIUM 3.7 mmol/L (3.5-5.1)
[2016-06-21 07:22] VITALS: BP 122/75
[2016-06-21 16:18] VITALS: BP 112/76
[2016-06-21 20:00] VITALS: BP 104/72
[2016-06-22 04:00] VITALS: BP 112/65
[2016-06-22 06:00] LABS: HEMATOCRIT 33.5 % (37.0-47.0); HEMOGLOBIN 11.3 gm/dL (12.0-15.0); MCHC 33.7 g/dL (28.0-37.0); MCV 86.2 fL (80.0-100.0); RBC 3.89 mil/uL (4.20-5.00); RDW 13.4 % (10.5-14.5); WBC 5.3 thou/uL (4.0-11.0)
[2016-06-22 06:13] LABS: CALCIUM 8.5 mg/dL (8.5-10.1); CREATININE 0.7 mg/dL (0.6-1.3); POTASSIUM 3.6 mmol/L (3.5-5.1)
[2016-06-22 08:35] VITALS: BP 106/68
[2016-06-22 16:00] VITALS: BP 112/72
[2016-06-22 19:33] VITALS: BP 104/72
[2016-06-23 03:55] VITALS: BP 100/63
[2016-06-23 08:00] VITALS: BP 100/62
[2016-06-23 16:00] VITALS: BP 108/70
[2016-06-23 19:15] VITALS: BP 119/71
[2016-06-24 04:50] VITALS: BP 102/63
[2016-06-24 08:20] VITALS: BP 107/74
[2016-06-24 19:00] LABS: HEMATOCRIT 32.7 % (37.0-47.0); HEMOGLOBIN 11.1 gm/dL (12.0-15.0); MCV 85.3 fL (80.0-100.0); RBC 3.83 mil/uL (4.20-5.00); RDW 13.8 % (10.5-14.5); WBC 4.9 thou/uL (4.0-11.0)
[2016-06-24 19:15] LABS: ALBUMIN 2.8 g/dL (3.4-5.0); CALCIUM 8.7 mg/dL (8.5-10.1); CREATININE 0.6 mg/dL (0.6-1.0); MAGNESIUM 2.1 mg/dL (1.8-2.4); PHOSPHORUS 3.6 mg/dL (2.5-4.9); POTASSIUM 3.8 mmol/L (3.5-5.1); TOTAL BILIRUBIN 0.3 mg/dL (<0.1-1.0); TOTAL PROTEIN 6.4 g/dL (6.4-8.2)
[2016-06-24 20:07] VITALS: BP 102/69
[2016-06-25 03:52] VITALS: BP 102/61
[2016-06-25 06:36] LABS: HEMATOCRIT 31.7 % (37.0-47.0); HEMOGLOBIN 10.7 gm/dL (12.0-15.0); MCH 28.8 pg (26.0-34.0); MCHC 33.8 g/dL (28.0-37.0); MCV 85.2 fL (80.0-100.0); PLATELET COUNT 199 thou/uL (150-400); RBC 3.72 mil/uL (4.20-5.00); RDW 13.9 % (10.5-14.5); WBC 5.5 thou/uL (4.0-11.0)
[2016-06-25 06:41] LABS: MANUAL DIFF YES
[2016-06-25 07:50] LABS: ABSOLUTE NEUTROPHILS 2.8 thou/uL (1.4-8.2); TOTAL CELL COUNT 100
[2016-06-25 07:51] LABS: ANISOCYTOSIS SLIGHT
[2016-06-25] MEDS ORDERED: TRAMADOL 50 MG50 MG PO (08:42)
[2016-06-25] MEDS ORDERED: ONDANSETRON HCL4 M1 PO (08:43)
[2016-06-25 08:48] VITALS: BP 97/65
[2016-06-25 10:25] VITALS: BP 126/83
[2016-06-25 15:09] VITALS: BP 126/83
[2016-06-25 16:29] VITALS: BP 126/83
[2016-06-25 16:30] VITALS: BP 126/83
== END 2016-06-25 16:26 | disposition home health service (06) | DRG 335 ==
LOC: 5S 05:16 → 4N 05:16 → TBA 05:16 → PRE 09:03 → 5S 13:26 → PRE 16:25 → 4N 06-09 07:17
PROVIDERS: Family Medicine; Hospitalist; Internal Medicine; Internal Medicine Cardiovascular Disease; Internal Medicine Pulmonary Disease; Nurse Practitioner Gerontology; Surgery
PROC: 0WQF0ZZ Repair Abdominal Wall, Open Approach (ICD-10-PCS; principal; 2016-06-01)
PROC: 0DBS0ZZ (ICD-10-PCS; principal; 2016-06-01)
PROC: 0JB80ZZ Excision of Abdomen Subcutaneous Tissue and Fascia, Open Approach (ICD-10-PCS; principal; 2016-06-01)
PROC: 0WCP0ZZ Extirpation of Matter from Gastrointestinal Tract, Open Approach (ICD-10-PCS; principal; 2016-06-01)
PROC: 0JX80ZZ Transfer Abdomen Subcutaneous Tissue and Fascia, Open Approach (ICD-10-PCS; principal; 2016-06-01)
PROC: 0DNW0ZZ Release Peritoneum, Open Approach (ICD-10-PCS; principal; 2016-06-01)
PROC: 0JH80NZ Insertion of Tissue Expander into Abdomen Subcutaneous Tissue and Fascia, Open Approach (ICD-10-PCS; principal; 2016-06-01)
PROC: 0WUF0JZ Supplement Abdominal Wall with Synthetic Substitute, Open Approach (ICD-10-PCS; principal; 2016-06-01)
DX: K43.0 Incisional hernia with obstruction, without gangrene (principal); J96.01 Acute respiratory failure with hypoxia; E43 Unspecified severe protein-calorie malnutrition; K56.5 Intestinal adhesions [bands] with obstruction (postinfection); E87.1 Hypo-osmolality and hyponatremia; K56.7 Ileus, unspecified; I99.8 Other disorder of circulatory system; I10 Essential (primary) hypertension; R07.89 Other chest pain; K21.9 Gastro-esophageal reflux disease without esophagitis; Z96.653 Presence of artificial knee joint, bilateral; E66.01 Morbid (severe) obesity due to excess calories; D72.829 Elevated white blood cell count, unspecified; Z68.32 Body mass index [BMI] 32.0-32.9, adult; Z90.710 Acquired absence of both cervix and uterus; Z91.041 Radiographic dye allergy status; Z88.1 Allergy status to other antibiotic agents; Z88.6 Allergy status to analgesic agent; Z91.013 Allergy to seafood; Z88.8 Allergy status to other drugs, medicaments and biological substances; Z91.048 Other nonmedicinal substance allergy status; Z82.3 Family history of stroke; Z80.8 Family history of malignant neoplasm of other organs or systems; Z82.0 Family history of epilepsy and other diseases of the nervous system; Z82.49 Family history of ischemic heart disease and other diseases of the circulatory system
CPT/HCPCS: 10785; 10790; 27001; 50010; 50093; 50101; 50331; 50386; 50455; 50648; 50994; 54109; 56524; 56525; 56527; 56530; 57092; 62110; 62900; 65075; 70005